=== PATIENT | female | born 1985 | race Two or more races ===

== ENCOUNTER 2024-10-16 12:58 | Inpatient (IN) | payer OTHER ==
[~2024-10-16] VITALS: Ht 182.9 cm; Wt 98.9 kg
[2024-10-16] MEDS ORDERED: ZESTORETIC 10-1 EACH (13:14)
--- NOTE | 2024-10-16 13:18 | NUR ---
SE RECIBE PTE ALERTA Y ORIENTADA X3 EN AMBULANCIA. PTE REFIERE WHIT DOLOR ABDOMINAL Y VOMITOS DESDE LA MADRUGADA DE HOY.
[2024-10-16] MEDS ORDERED: METOCLOPRAMIDE HCL 10 MG in DEXTROSE 5 % IN WATER 50 ML IV ONE (15:00)
[2024-10-16] MEDS ORDERED: MORPHINE SULFATE 2 MG/ML CARTRIDGE IV ONE (15:00)
[2024-10-16] MEDS ORDERED: HYOSCYAMINE SULFATE 0.125 MG TAB.SUBL SL ONE (15:00)
[2024-10-16] MEDS ORDERED: 0.9 % SODIUM CHLORIDE 500 ML IV SCH (15:00)
--- NOTE | 2024-10-16 16:15 | NUR ---
SE ORIENTA PTE SOBRE TX MEDICO EL CUAL REFIERE ENTENDER.SE LE EXTRAEN MUESTRAS BAJO MEDIDAS ASEPTICAS,SE CANALIZA Y SE ADMINISTRAN MEDICAMENTOS ARA ORDEN MEDICA.
[2024-10-16 16:22] LABS: ALT/SGPT 41.0 U/L (12-78); AST/SGOT 64.0 U/L (15-37); BILIRUBIN TOTAL 0.59 mg/dL (0.3-1.2); BILIRUBIN,CONJUGATED 0.14 mg/dL (0.0-0.2); BUN CREA RATIO 21.0 (7.0-25.0); CREATININE SERUM 1.02 mg/dL (0.55-1.02); GFR 60.98; GLOBULINA 4.0 G/DL (2.4-3.5); GLUCOSE FASTING 120.0 mg/dL (65-100); OSMOLALITY SERUM 284.0 MOSM/KG (275-295)
[2024-10-16 16:30] LABS: BASO % 0.3 % (0.1-1.2); EOS # 0.06 (0.04-0.54); EOS % 0.8 % (0.7-7.0); LYMPH # 1.97 (1.18-3.74); LYMPH % 25.8 % (19.3-53.1); MEAN PLATELET VOLUME 9.80 fl (9.4-12.4); MONO # 0.65 (0.24-0.82); MONO % 8.5 % (4.7-12.5); NEUT # 4.92 (1.56-6.13); NEUT % 64.3 % (34.0-71.1); RED CELL DISTRIBUTION WIDTH 18.6 % (11.6-14.4)
[2024-10-16] MEDS ORDERED: PANTOPRAZOLE SODIUM 40 MG/VIAL VIAL IV ONE (18:00)
[2024-10-16 20:39] LABS: INR 1.11
[2024-10-17] MEDS ORDERED: MORPHINE SULFATE 4 MG/ML VIAL IV STA (01:16)
[2024-10-17] MEDS ORDERED: PROMETHAZINE HCL 50 MG/ML AMPUL IM STA (01:16)
[2024-10-17] MEDS ORDERED: FAMOTIDINE/PF 20 MG/2 ML VIAL IV PUSH STA ×2 (01:16→07:39)
--- NOTE | 2024-10-17 01:17 | NUR ---
SE MILIND S/V AL PACIENTE Y ESTOS SE LES NOTIFICA AL DR. FRANCOIS.
--- NOTE | 2024-10-17 01:49 | NUR ---
SE ORIENTA A PACIENTE SOBRE TX MEDICO Y EL MISMO REFIERE ENTENDER Y ACEPTAR AGUSTIN. SE PROCEDE A ADMINISTRAR MEDICAMENTO ARA ORDEN MEDICA BAJO MEDIDAS ASEPTICAS.
--- NOTE | 2024-10-17 07:05 | NUR ---
PTE ALERTA Y ORIENTADA X3 SE MILIND S/V. PTE EN ISMA CON BARANDAS ELEVDAS POR [place] SEGURIDAD. PTE EN POSICION SEMI SENTADA CANALIZADA EN BRAZO DERCHO AREA ELAN DE EDEMA Y ENROJECIMIENTO. SE MANTIENE BAJO OBSERVACION POR CAMBIO.
[2024-10-17] MEDS ORDERED: SUCRALFATE 1 G TABLET PO STA (07:39)
[2024-10-17] MEDS ORDERED: METOCLOPRAMIDE HCL 10 MG in DEXTROSE 5 % IN WATER 50 ML IV ONE (09:45)
[2024-10-17] MEDS ORDERED: METHYLPREDNISOLONE SOD SUCC 125 MG VIAL IV ONE (09:45)
[2024-10-17 09:48] LABS: URINE APPEARANCE Clear; URINE BILIRRUBIN Negative (NEGATIVE); URINE BLOOD Negative; URINE COLOR Dark Yellow; URINE KETONE 15 (NEGATIVE); URINE LEUKOCYTE Negative; URINE NITRATE Negative; URINE PROTEIN 30 (NEGATIVE); URINE UROBILINOGEN 1.0 E.U./dl
[2024-10-17 09:49] LABS: URINE BACTERIA 950.8 uL (0.0-1933); URINE EPITHELIAL CELLS 39.3 uL (0.0-38.8); URINE RBC 29.6 uL (0.0-20.8); URINE WBC 7.8 uL (0.0-23.2)
[2024-10-17 09:56] LABS: URINE CAST 0.14 uL (0.0-1.40); URINE GLUCOSE 100 MG/DL (NEGATIVE)
[2024-10-17 10:05] LABS: URINE CRYSTALS FEW /HPF
[2024-10-17 10:16] LABS: COCAINE POSITIVE (NEGATIVE); METHADONE NEGATIVE (NEGATIVE); OPIATES POSITIVE (NEGATIVE); THC ( Cannabinoids) POSITIVE (NEGATIVE)
[2024-10-17] MEDS ORDERED: PANTOPRAZOLE SODIUM 40 MG/VIAL VIAL IV PUSH SCH (12:45)
[2024-10-17] MEDS ORDERED: 0.9 % SODIUM CHLORIDE 1,000 ML IV SCH (19:00)
[2024-10-17] MEDS ORDERED: MORPHINE SULFATE 4 MG/ML CARTRIDGE IV PRN (19:30)
[2024-10-17] MEDS ORDERED: PANTOPRAZOLE SODIUM 80 MG in 0.9 % SODIUM CHLORIDE 100 ML IV SCH (19:30)
[2024-10-17] MEDS ORDERED: ONDANSETRON HCL 4 MG in 0.9 % SODIUM CHLORIDE 50 ML IV PRN (19:30)
[2024-10-17 20:27] VITALS: BP 170/95
[2024-10-18 04:40] VITALS: BP 131/86; O2SAT 100
[2024-10-18 08:00] VITALS: BP 135/99; O2SAT 99
[2024-10-18] MEDS ORDERED: SUCRALFATE 1 G TABLET PO SCH (09:00)
[2024-10-18] MEDS ORDERED: MIDAZOLAM HCL 2 MG/2 ML VIAL IV ONE (19:00)
[2024-10-18] MEDS ORDERED: DIPHENHYDRAMINE HCL 50 MG/ML VIAL 1ML IV ONE (19:00)
[2024-10-18] MEDS ORDERED: fentaNYL CITRATE 50 MCG/ML AMPUL IV PUSH ONE (19:00)
[2024-10-19 02:24] VITALS: BP 120/79; O2SAT 97
[2024-10-19 07:00] VITALS: BP 180/120; O2SAT 99
[2024-10-19] MEDS ORDERED: ENALAPRILAT DIHYDRATE 1.25 MG/ML VIAL IV PRN (08:15)
[2024-10-19] MEDS ORDERED: PANTOPRAZOLE SODIUM 40 MG/VIAL VIAL IV SCH (09:00)
[2024-10-19 14:23] LABS: BASO % 0.5 % (0.1-1.2); EOS # 0.03 (0.04-0.54); EOS % 0.4 % (0.7-7.0); LYMPH # 2.08 (1.18-3.74); LYMPH % 27.4 % (19.3-53.1); MEAN PLATELET VOLUME 10.50 fl (9.4-12.4); MONO # 0.49 (0.24-0.82); MONO % 6.5 % (4.7-12.5); NEUT # 4.93 (1.56-6.13); NEUT % 64.9 % (34.0-71.1); RED CELL DISTRIBUTION WIDTH 19.0 % (11.6-14.4)
[2024-10-19 15:17] LABS: ALT/SGPT 29.0 U/L (12-78); AST/SGOT 31.0 U/L (15-37); BILIRUBIN TOTAL 0.45 mg/dL (0.3-1.2); BUN CREA RATIO 13.0 (7.0-25.0); CREATININE SERUM 0.79 mg/dL (0.55-1.02); GFR 81.89; GLOBULINA 3.1 G/DL (2.4-3.5); GLUCOSE FASTING 95.0 mg/dL (65-100); OSMOLALITY SERUM 282.0 MOSM/KG (275-295)
[2024-10-19 15:30] VITALS: BP 114/75; O2SAT 96
[2024-10-20 00:56] VITALS: BP 144/78; O2SAT 100
[2024-10-20 08:00] VITALS: BP 125/78; O2SAT 98
[2024-10-20 16:00] VITALS: BP 146/96; O2SAT 98
[2024-10-21 01:12] VITALS: BP 131/88; O2SAT 98
[2024-10-21 10:24] VITALS: BP 147/91; O2SAT 100
[2024-10-21 16:00] VITALS: BP 143/94; O2SAT 98
[2024-10-21] MEDS ORDERED: MORPHINE SULFATE 4 MG/ML CARTRIDGE IV PRN (23:45)
[2024-10-22 01:18] VITALS: BP 145/61; BP 146/103; O2SAT 93; O2SAT 97
[2024-10-22 08:00] VITALS: BP 99/63; O2SAT 100
[2024-10-22] MEDS ORDERED: AMLODIPINE BESYLATE 2.5 MG TABLET PO SCH (09:00)
[2024-10-22] MEDS ORDERED: METOCLOPRAMIDE HCL 5 MG/ML VIAL IV SCH (13:00)
[2024-10-22] MEDS ORDERED: MORPHINE SULFATE 4 MG,MORPHINE SULFATE 2 MG IV SCH (17:00)
[2024-10-22] MEDS ORDERED: MORPHINE SULFATE 4 MG/ML CARTRIDGE IV SCH (17:00)
[2024-10-23 01:30] VITALS: BP 124/85; O2SAT 100
[2024-10-23 08:35] VITALS: BP 107/61; O2SAT 99
[2024-10-23 14:10] VITALS: BP 168/90
[2024-10-23 16:00] VITALS: BP 150/100; O2SAT 99
[2024-10-23 18:11] VITALS: BP 137/89; O2SAT 98
== END 2024-10-23 18:00 | disposition home or self-care (01) | DRG 392 ==
LOC: ER 12:58 → SURH 10-17 19:40 → SEC-K 10-17 19:40 → SURH 10-18 01:52
PROVIDERS: Emergency Medicine; General Practice; Internal Medicine; ADMIT Internal Medicine; ATTEND Internal Medicine
PROC: BW21YZZ Computerized Tomography (CT Scan) of Abdomen and Pelvis using Other Contrast (ICD-10-PCS; 2024-10-16)
PROC: 0DB68ZX Excision of Stomach, Via Natural or Artificial Opening Endoscopic, Diagnostic (ICD-10-PCS; principal; 2024-10-19)
PROC: 0DB78ZX Excision of Stomach, Pylorus, Via Natural or Artificial Opening Endoscopic, Diagnostic (ICD-10-PCS; 2024-10-19)
PROC: BD47ZZZ Ultrasonography of Gastrointestinal Tract (ICD-10-PCS; 2024-10-19)
PROC: 05HY33Z Insertion of Infusion Device into Upper Vein, Percutaneous Approach (ICD-10-PCS; 2024-10-19)
DX: K29.50 Unspecified chronic gastritis without bleeding (principal); K90.49 Malabsorption due to intolerance, not elsewhere classified; M62.830 Muscle spasm of back; M54.89 Other dorsalgia; I10 Essential (primary) hypertension; F17.210 Nicotine dependence, cigarettes, uncomplicated; Z88.6 Allergy status to analgesic agent; Z88.0 Allergy status to penicillin